=== PATIENT | male | born 1975 | race Caucasian/White ===

== ENCOUNTER 2017-03-05 12:00 | Inpatient (IN) | payer MEDICAID ==
--- NOTE | ~2017-03-05 | PA ---
Unit #: [id number] #: [id number] Patient: REDDY BO [id number] [facility] [address] [place] [address] [id number] I MR#: [id number] NAME: REDDY BO ROOM: P210 Age: 41 Sex: M Admission Date: 03/05/2017 : 1975 Date of Assessment: 03/06/2017 Attending Physician: Ric Lazar M.D. Admitting Physician: Ric Lazar M.D. Primary Care Physician: Generic Doctor Not In System PSYCHIATRIC ASSESSMENT INFORMANTS The patient reliability, fair informant and chart reliability, good. CHIEF COMPLAINT Alcohol withdrawal. HISTORY OF PRESENT ILLNESS Mr. Camacho is a 41-year-old male, presented with the above-mentioned complaint. The patient presented with use of alcohol, 12 to 24 ounce beer. The patient reported longest period of sobriety 2 days two years ago. The patient reported he experienced two seizures 3 days ago. The patient reported experiencing irritability, headache, and muscle spasms. The patient scored 6 on CIWA score. The patient denied any thoughts and plans of harming himself. Denied any psychotic symptom. The patient also admitted use of marijuana. Tobacco use, age of onset 14; alcohol, age of onset 13; marijuana, age of onset 15; and opioid, age of onset 38. Long period of sobriety 10 months. The patient denied any history of blackout, HIV, or hepatitis, but history of withdrawal symptom and IV drug use. Currently, reporting sweating, dry heaving, hot and cold sweats, pins and needles, headache, muscle spasm, and seizure. Needing inpatient admission at this time for psychiatric stabilization. PAST PSYCHIATRIC HISTORY Unremarkable for any history of previous treatment, except history of accidental overdose of heroin in the past multiple times. Inpatient medical treatment in 2014 at [facility]. FAMILY HISTORY AND SOCIAL HISTORY The patient has poor support system. No known history of any abuse. No legal problems. MEDICAL HISTORY Unremarkable for any chronic medical condition. Musculoskeletal; muscle strength and tone, no atrophy or abnormal movement. Gait normal. MEDICATION HISTORY None. ALLERGIES No known drug allergies. SUBSTANCE ABUSE HISTORY Please see above. Unit #: [id number] #: [id number] Patient: REDDY BO REVIEW OF SYSTEMS HEENT: Eyes, clear. Ears, nose, mouth, and throat; clear. CARDIOVASCULAR: Unremarkable. RESPIRATORY: Unremarkable. GI: Unremarkable. : Unremarkable. SKIN: Unremarkable. LYMPH NODE: Unremarkable. NEUROLOGIC: Unremarkable. ENDOCRINE: Unremarkable. HEMATOLOGIC: Unremarkable. ALLERGIC/IMMUNOLOGIC: Unremarkable. MUSCULOSKELETAL: Muscle strength and tone, no atrophy or abnormal movement. Gait normal except as noted above. MENTAL STATUS EXAMINATION CONSTITUTIONAL: Measurement of vital signs; temperature 98.6, heart rate 84, respiratory rate 16, and blood pressure 130/84. Height 6 feet and weight 170 pounds. GENERAL APPEARANCE: The patient dressed casually. Hygiene and grooming, poor. No facial deformity noted. MUSCULOSKELETAL: Please see above. PSYCHIATRIC EXAMINATION Description of speech, regular rate. Description of thought process, goal directed. Description of association, intact. Description of abnormal psychotic thinking; the patient denied any hallucination or delusions, but sad, depressed, and substance abuse. No psychotic symptom. Description of the patient's judgment: Concerning everyday activity, poor. Social situation, poor. Concerning psychiatric condition, poor. Complete mental status examination; oriented in time, place, and person. Recent and remote memory, fair. Attention span and concentration, fair. Language, able to name object and repeat phrases. Fund of knowledge, aware of current event and passive vocabulary intact. Mood and affect, sad and dysphoric. Insight and judgment, fair to poor. ASSETS AND LIABILITIES Assets, the patient is articulate and able to take care of his ADL. Liability, history of substance abuse. ADMITTING DIAGNOSES Psychiatric: Alcohol use disorder, severe, F10.20 and cannabis abuse disorder, moderate, F12.20. Secondary diagnosis: Deferred. Medical diagnosis: None. Stressors: Psychosocial stressors. PSYCHIATRIC PLAN AND TREATMENT GOAL AND DISCHARGE PLAN 1. Advised to admit the patient on the inpatient unit. Provide safe, supportive, and structured environment. 2. Ordered labs; CBC, CMP, UA, and UDS. 3. Detox protocol, detox monitoring, and seizure precaution. 4. The patient was started on Neurontin 300 mg t.i.d. The patient to Unit #: [id number] #: [id number] Patient: REDDY BO attend group therapy, individual therapy, and chemical dependency group. TREATMENT GOAL To attain euthymic mood, gain insight into his problem, and learn coping skills. DISCHARGE PLAN Plan to stabilize the patient and consider followup in outpatient program. ESTIMATED LENGTH OF STAY 3 to 5 days. Dictated by... Angelica Ferro/macarena TD: 03/06/2017 15:12 JOB #: [id number] PSYCHIATRIC ASSESSMENT Page 1 of 1 X Ric Lazar MD X PSYCHIATRIC ASSESSMENT
--- NOTE | ~2017-03-05 | A ---
[facility] Nutrition Therapy DATE: 03/07/17 Patient: REDDY BO Physician: [facility] Address: Sourav Olivas Room/Bed: [address], Zip: [place] [address] Admit Date: 03/05/17 Date of : [birth year] Height: 6 0 Weight: [phone] NUTRITIONAL ASSESSMENT: REASON: UNINTENTIONAL WEIGHT LOSS PATIENT ADMITTED FOR ETOH DETOX PMH: COPD, HX WITHDRAWAL SEIZURES Anthropometrics: HT: 72", WT: 170#, BMI:23.1, %IBW: 96 Labs: NO LABS AVAILABLE Meds: DESYREL, DETOX PROTOCOL, NEURONTIN Assessment: PATIENT IS A 1 Y/O MALE ADMITTED FOR ETOH DETOX. PATIENT IS CURRENTLY EMPLOYED, LIVES WITH HIS BROTHER, SMOKES 1 PPD, HAS DAILY ETOH USE, FREQUENT CANNABIS USE, AND A HX OF HEROIN ABUSE. PATIENT HAS BEEN EXPERIENCING WITHDRAWAL SEIZURES OVER LAST FEW DAYS AND YESTERDAY HE HAD C/O NAUSEA, DIARRHEA, AND STOMACH CRAMPS. PRN MEDICATIONS WERE GIVEN AND SEEM TO HAVE BEEN EFFECTIVE. PER NEEDS ASSESSMENT PATIENT STATED A FAIR APPETITE WITH NO RECENT WEIGHT CHANGES. NURSING REPORTS GOOD PO INAKES. THERE WERE NO LABS AVAILABLE. THERE ARE NO SKIN ISSUES NOTED ATT. HIS BMI IS WITHIN A HEALTHY RANGE AND HE IS 96% OF HIS IBW. PATIENT IS CURRENTLY ON A REGULAR DIET WITH LARGE PORTION ENTREES AND HE RECEIVES ENSURE TID. Dx: NO NUTRITION DX Intervention: REGULAR DIET, SUPPLEMENTATION, MEDS PER MD, DETOX, PSYCH Monitoring, Evaluation and Goals: 1. ADEQUATE PO INTAKES >50% OF MEALS 2. PREVENT, CORRECT MICRO/MACRO NUTRIENT DEFICIENCIES MONITOR: WEIGHTS, LABS, PO/FLUID INTAKES Recommendations: 1. CONTINUE REGULAR DIET TOLERATED. PATIENT CURRENTLY RECEIVES LARGE PORTION ENTREES AND ENSURE TID. THIS MAY CAUSE EXCESSIVE WEIGHT GAIN D/T NO NUTRITIONAL NEED FOR INCREASED CALORIC INTAKE. RECOMMEND D/CING LARGE PORTIONS OR ENSURE 2. OBTAIN WEIGHTS ROUTINELY TO ENSURE PATIENT DOES NOT HAVE EXCESSIVE WEIGHT GAIN 3. ENCOURAGE ADEQUATE FLUID INTAKES. PATIENT IS AT A RISK FOR DEHYDRATION D/T DIARRHEA [facility] Nutrition Therapy DATE: 03/07/17 Patient: REDDY BO [facility] Address: Sourav Olivas Room/Bed: [address], Zip: [place] [address] Admit Date: 03/05/17 Date of : [birth year] Height: 6 0 Weight: [phone] TO F/U PER PROTOCOL AND PRN R/T PATIENT NOT AT NUTRITIONAL RISK ATT Respectfully, ANAM ADAM RD, LD [facility] cc: client file
--- NOTE | ~2017-03-05 | PN ---
Unit #: [id number] #: [id number] Patient: REDDY BO [id number] [facility] [address] [place] [address] [id number] I MR#: [id number] NAME: REDDY BO ROOM: P210 Age: 41 Sex: M Admission Date: 03/05/2017 : 1975 Attending Physician: Ric Lazar M.D. Admitting Physician: Ric Lazar M.D. Primary Care Physician: Generic Doctor Not In System [facility] PROGRESS NOTES DATE 03/08/2017 DISCUSSION Reddy is a 41-year-old male, seen on 03/08/2017. The patient interviewed, chart reviewed, and obtained information from the nursing staff. The patient was compliant and cooperative, tolerating medication fairly well, currently on detox protocol, making progress. REVIEW OF SYSTEMS Complete review of systems unremarkable. MENTAL STATUS EXAMINATION General appearance: Patient dressed casually. Attention span and concentration, fair. Oriented to place and person. Mood and affect, labile. Speech, monotone. Thought process, concrete. The patient denied any thoughts of harming self or others. Recent and remote memory, poor. Insight and judgment, poor. DIAGNOSIS Alcohol use disorder, severe. ASSESSMENT/PLAN Advised to continue with the current programming with the plan to consider discharge this week. Dictated by... Angelica Ferro/juan TD: 03/10/2017 12:24 JOB #: [id number] Unit #: [id number] #: [id number] Patient: REDDY BO [facility] PROGRESS NOTES Page 1 of 1 X Ric Lazar MD X PROGRESS NOTE
--- NOTE | ~2017-03-05 | DS ---
Unit #: [id number] #: [id number] Patient: REDDY BO [id number] [place] [address] [id number] I MR#: [id number] NAME: REDDY BO ROOM: P210 Age: 41 Sex: M Admission Date: 03/05/2017 : 1975 Discharge Date: 03/09/2017 Attending Physician: Ric Lazar M.D. Primary Care Physician: Generic Doctor Not In System DISCHARGE SUMMARY REASON FOR ADMISSION Alcohol withdrawal. DIAGNOSTIC STUDIES LABORATORY RESULTS: Unremarkable. HOSPITAL COURSE The patient was admitted to inpatient unit on 03/05/2017 and discharged on 03/09/2017. The patient was treated on the inpatient unit with group therapy, individual therapy, medication management, and chemical dependency group. The patient responded well with the above modalities of treatment. Subsequently, the patient was discharged with a plan to follow up in outpatient program. DISCHARGE MEDICATIONS None. DISCHARGE DIAGNOSES Psychiatric: Alcohol use disorder, severe, F10.20. Secondary diagnosis: Deferred. Medical diagnosis: None. Stressors: Psychosocial stressors. DISCHARGE INSTRUCTIONS The patient to follow up in outpatient clinic as per social services assistant. CONDITION ON DISCHARGE The patient was pleasant and cooperative. PROGNOSIS Guarded. DIET AND ACTIVITY As tolerated. Dictated by... Ric Lazar M.D. Unit #: [id number] #: [id number] Patient: REDDY BO SZC/modl TD: 03/09/2017 17:58 JOB #: [id number] DISCHARGE SUMMARY Page 1 of 1 X Ric Lazar MD X DISCHARGE SUMMARY
--- NOTE | ~2017-03-05 | PN ---
Unit #: [id number] #: [id number] Patient: REDDY BO [id number] [facility] [address] [place] [address] [id number] I MR#: [id number] NAME: REDDY BO ROOM: P210 Age: 41 Sex: M Admission Date: 03/05/2017 : 1975 Attending Physician: Ric Lazar M.D. Admitting Physician: Ric Lazar M.D. Primary Care Physician: Generic Doctor Not In System [facility] PROGRESS NOTES DATE 03/07/2017 DISCUSSION Mr. Camacho is a 41-year-old male. The patient interviewed, chart reviewed, and obtained information from the nursing staff. The patient was compliant and cooperative. Mood sad and dysphoric, flat affect, but able to maintain safe behavior. The patient reported still having irritability, withdrawal symptoms but her vital signs, 98.6, 84, 99/54. REVIEW OF SYSTEMS Complete review of systems unremarkable. MENTAL STATUS EXAMINATION General appearance: Patient dressed casually. Attention span and concentration, fair. Oriented to place and person. Mood and affect, labile. Speech, monotone. Thought process, concrete. The patient denied any thoughts of harming self or others. Recent and remote memory, poor. Insight and judgment, poor. DIAGNOSIS 1. Alcohol use disorder, severe. 2. Mood disorder, NOS. ASSESSMENT/PLAN Advised to continue with the current medication and therapeutic protocol, and if needed consider further adjustment of medication. Dictated by... Angelica Ferro/juan TD: 03/10/2017 05:44 JOB #: [id number] Unit #: [id number] #: [id number] Patient: REDDY BO [facility] PROGRESS NOTES Page 1 of 1 X Ric Lazar MD PROGRESS NOTE
--- NOTE | ~2017-03-05 | HP ---
Unit #: [id number] #: [id number] Patient: REDDY BO [id number] [place] [address] [id number] I MR#: [id number] NAME: REDDY BO ROOM: P210 Age: 41 Sex: M Admission Date: 03/05/2017 : 1975 Attending Physician: Ric Lazar M.D. Admitting Physician: Ric Lazar M.D. Primary Care Physician: Generic Doctor Not In System HISTORY AND PHYSICAL HISTORY OF PRESENT ILLNESS Reddy is a 41 year old admitted to [address] [place] [address] because of his abuse of alcohol. PAST MEDICAL HISTORY 1. History of alcohol abuse. 2. History of withdrawal seizures. 3. COPD. PAST SURGICAL HISTORY 1. Appendectomy. 2. Bilateral ACL repairs. ALLERGIES Penicillin. SOCIAL HISTORY Smokes 1 pack per day. Drinks at least a fifth of liquor on a daily basis and denies illicit drug use. FAMILY HISTORY Medically noncontributory. REVIEW OF SYSTEMS CONSTITUTIONAL: No fever or chills. HEENT: Denies any sore throat, ear pain or runny nose. CARDIOVASCULAR: Denies chest pain, irregular heart rhythm or palpitations. CHEST: Denies shortness of breath or cough. No hemoptysis. GASTROINTESTINAL: Denies nausea, vomiting, diarrhea or chronic constipation. ENDOCRINE: Denies history of increased thirst or urination. No recent significant weight loss or gain. GENITOURINARY: Denies dysuria, frequency, or hematuria. SKIN: Denies any rashes. HEMATOLOGIC: Denies history of increased bleeding or bruising. MUSCULOSKELETAL: Denies any hot, swollen joints. No generalized muscle pain. NEUROLOGIC: Denies problems with vision or speech. No frequent, severe headaches. No numbness, tingling or weakness in any extremities. Denies loss of bladder or bowel control. CURRENT MEDICATIONS Detox protocol. Unit #: [id number] #: [id number] Patient: REDDY BO PHYSICAL EXAMINATION GENERAL: Alert, well-nourished, in no apparent distress. VITAL SIGNS: Blood pressure 130/84, heart rate 80, respirations 16, temperature 98.6. WEIGHT: 170. HEIGHT: 6 feet 0 inches. SKIN: Warm and dry without rash or lesion. HEENT: Normocephalic. TMs not viewed. Oral and nasal passages clear. Conjunctivae clear. PERRLA. EOMs intact. NECK: Supple without lymphadenopathy or thyromegaly. HEART: Regular rate and rhythm without murmur. LUNGS: Clear. ABDOMEN: Soft, nontender. : Not done. EXTREMITIES: No evidence of cyanosis, clubbing or edema. Moves all without focal deficit. NEUROLOGICAL: Grossly within normal limits. Cranial Nerves: II: Visual dias are intact. III, IV AND : Extraocular movements are intact. Pupils are equal, round and reactive to light. V: Facial sensation is grossly normal. VII: Facial movements and expression are normal. VIII: Auditory acuity grossly intact. IX, X: Uvula is midline. Phonation is normal. XI: Patient shrugs shoulders and turns head normally. XII: Tongue protrudes in the midline. Sensory and Motor Function: Sensory and motor sensation is grossly normal. Motor: moves all extremities well. Coordination: Gait is normal. Deep Tendon Reflexes: Intact. IMPRESSION Psychiatric admission. RECOMMENDATIONS PSYCHIATRIC: Per psychiatrist. MEDICAL: See no contraindication to participate in facility's activities. MEDICAL PROGNOSIS Good. MEDICAL CONDITION Stable. Dictated by... Deb Hernandez PGhadaAQuyen. for Angelica Rajan/justin TD: 03/06/2017 16:24 JOB #: [id number] Unit #: [id number] #: [id number] Patient: REDDY BO HISTORY AND PHYSICAL Page 1 of 1 X Deb Hernandez HISTORY AND PHYSICAL
== END 2017-03-09 14:05 | disposition home or self-care (01) | DRG 897 ==
LOC: P2S 12:00
PROC: HZ2ZZZZ Detoxification Services for Substance Abuse Treatment (ICD-10-PCS; principal; 2017-03-06)
DX: F10.20 Alcohol dependence, uncomplicated (principal); F39 Unspecified mood [affective] disorder; J44.9 Chronic obstructive pulmonary disease, unspecified; F17.210 Nicotine dependence, cigarettes, uncomplicated; Z88.0 Allergy status to penicillin
CPT/HCPCS: 86592